=== PATIENT | female | born 1970 | race Caucasian/White ===

== ENCOUNTER → 2016-12-12 | Outpatient (CLI) | payer BC ==
[~2016-12-12] MED LIST: ATENOLOL25 MG PO; BENADRYL25 M2 PO; BENTYL 10MG10 MG/CAP PO; CLIMARA0.075 MG/2 TD; COMPAZINE 110 MG/TAB PO; GLUMETZA500 MG PO; HCTZ 25MG TAB25 MG PO; INDOCIN 25MG CA25 MG PO; LEVOXYL0.125 MG PO; MOTRIN 200200 MG/TAB PO; NORCO 325 MG-7.1 TAB PO; PERCOCET 325 MG1 TA2 PO; PERCOCET 325 MG1 TAB PO; PERCR 7.5 PO; PREMARIN 0.60.625 M1 PO; PREVACID 30MG30 M1 PO; PRILOSEC 20MG20 MG PO; PRINIVIL20 MG PO; TAPAZOLE5 MG PO; TENORMIN100 MG PO; TRAZODONE HCL100 MG PO
== END ==
LOC: COL.RAD 14:37
DX: R10.11 Right upper quadrant pain (principal)

== ENCOUNTER → 2017-02-28 | Outpatient (CLI) | payer BC | LOC: COL.RAD 13:01 | DX: N20.0 Calculus of kidney (principal) ==

== ENCOUNTER → 2017-03-12 | Outpatient (CLI) | payer BC | LOC: COL.RAD 06:00 | DX: R10.84 Generalized abdominal pain (principal) | CPT/HCPCS: A9537; J2805 ==

== ENCOUNTER 2022-04-30 16:44 | Emergency (ER) | payer BC ==
[~2022-04-30] VITALS: Ht 157.5 cm; Wt 79.5 kg
[~2022-04-30 16:44] MED LIST changes: +ATIVAN 0.50.5 MG/TAB PO; +COZAAR 25MG25 MG/TAB PO; +LEXAPRO 5MG5 MG PO; +LIPITOR20 MG PO; +NORCO 325 MG-51 TAB PO; +TAZTIA120; +VICTOZA6 MG/ML SQ; +WELLBUTRIN 100100 MG PO
[2022-04-30 17:08] VITALS: TEMP 98
[2022-04-30 17:28] LABS: COLLECTION METHOD CLEAN CATCH
[2022-04-30 17:30] LABS: BASO # 0.1 K/mm3 (0.0-0.2); BASO % 0.6 % (0.0-2.0); EOS # 0.2 K/mm3 (0.0-0.7); EOS % 1.5 % (0.0-4.0); GRAN # 10.5 K/mm3 (1.4-6.5); GRAN % 73.7 % (42.2-75.2); HEMATOCRIT 44.7 % (37.0-47.0); HEMOGLOBIN 14.1 g/dl (12.5-16.0); LYMPH # 2.7 K/mm3 (1.2-3.4); LYMPH % 19.2 % (20.0-51.0); MEAN CELL VOLUME 89 fl (80.0-100.0); MEAN CORPUSCULAR HEMOGLOBIN 28 pg (27-31); MEAN CORPUSCULAR HGB CONC 32 g/dl (33.0-37.0); MEAN PLATELET VOLUME 10.2 fl (7.4-10.4); MONO # 0.7 K/mm3 (0.1-0.6); MONO % 4.6 % (1.7-9.3); PLATELET COUNT 439 K/mm3 (130-400); REDCELL DISTRIBUTION WIDTH-CV 13.2 % (11.5-14.5)
[2022-04-30 17:35] LABS: MUCOUS Present (NOT PRESENT); PH 5 (5-8); URINE APPEARANCE Cloudy (CLEAR/HAZY); URINE BACTERIA None Seen /hpf (NONE SEEN); URINE BLOOD 3+ (NEGATIVE); URINE COLOR Amber (YELLOW); URINE GLUCOSE Negative (NEGATIVE); URINE KETONE Negative (NEGATIVE); URINE NITRATE Negative (NEGATIVE); URINE PROTEIN(semi-quant) 2+ (NEGATIVE); URINE RBC >50 /hpf (0-2)
[2022-04-30 17:49] LABS: BILIRUBIN,TOTAL 0.4 mg/dL (0.2-1.2); CALCIUM 9.5 mg/dL (8.4-10.2); CREATININE, serum 1.12 mg/dL (0.57-1.11); TOTAL PROTEIN 7.6 gm/dL (6.2-8.1)
[2022-04-30 19:48] VITALS: BP 134/85; PULSE 89
== END 2022-04-30 20:27 | disposition home or self-care (01) ==
LOC: COL.ER 16:44
PROVIDERS: Nurse Practitioner
DX: N13.2 Hydronephrosis with renal and ureteral calculous obstruction (principal); E11.9 Type 2 diabetes mellitus without complications; Z79.4 Long term (current) use of insulin
CPT/HCPCS: J1170; J1885; J2270; J2405; J7030; Q9967